=== PATIENT | female | born 1955 | race Caucasian/White ===

== ENCOUNTER 2017-05-15 15:06 | Emergency (ER) | payer BC, OTHER ==
[2017-05-15] MEDS ORDERED: Reglan 10 MG/2 ML IV ONE (15:23)
[2017-05-15] MEDS ORDERED: BENADRYL 50 MG/ML IV ONE (15:23)
[2017-05-15] MEDS ORDERED: Sodium Chloride 0.9% 1000 ML 1,000 ML IV SCH (15:30)
--- NOTE | 2017-05-15 15:32 | ERPHSYRPT ---
- History of Present Illness Time Seen by Provider: 05/15/17 15:14 Source: patient, family (daughter who is RN) Patient Subjective Stated Complaint: pt co worst [place] of life at 1130 today, states pain is behind left eye, weak.light sensitive Triage Nursing Assessment: pt alert, walked in, resp easy, skin w/d/p. no edema noted, speech clear , Physician History: CC: headache HX: 63 y/o patient with remote hx of seizures had unusual headache begin around 11PM and intensify. It is severe. She had to go to bed. She has no hx of headaches in the past. No fall or injury. Some photophobia. Neck pain. Chills without fever. No rash. Pain is behind her eye. No nasal congestion or cough or flu symptoms. She took a baby aspirin and advil and it has helped her some. Severity of Pain-Max: severe Severity of Pain-Current: severe Allergies/Adverse Reactions: No Known Drug Allergies Allergy (Verified 05/15/17 15:25) Home Medications: Aspirin 81 gm Chew [Baby Aspirin 81 mg Chew] 81 mg PO DAILY 11/07/14 [ History] Calcium Carbonate [Calcium] 600 mg PO BID 11/07/14 [History] Ibandronate Sodium [Boniva] 150 mg PO UD 11/07/14 [History] Levetiracetam [Keppra Xr] 500 mg PO BID 11/07/14 [History] Pravastatin Sodium 20 mg PO DAILY 11/19/14 [History] Hx Influenza Vaccination/Date Given: No Hx Pneumococcal Vaccination/Date Given: No Immunizations Up to Date: Yes - Review of Systems Constitutional: Chills, Malaise, No Fever Eyes: Photophobia Ears, Nose, & Throat: No Symptoms, No Nose Congestion Respiratory: No Cough Cardiac: No Other Abdominal/Gastrointestinal: Nausea, No Abdominal Pain, No Vomiting Musculoskeletal: No Fall, No Injury, No Myalgias Skin: No Rash Neurological: Headache, No Focal Weakness, No Parasthesia All Other Systems: Reviewed and Negative - Past Medical History Pertinent Past Medical History: Yes Neurological History: Seizures ENT History: No Pertinent History Cardiac History: High Cholesterol Respiratory History: No Pertinent History Endocrine Medical History: No Pertinent History Musculoskeletal History: No Pertinent History GI Medical History: No Pertinent History History: No Pertinent History Psycho-Social History: No Pertinent History Female Reproductive Disorders: No Pertinent History - Past Surgical History Past Surgical History: Yes Neuro Surgical History: No Pertinent History Cardiac: No Pertinent History Gastrointestinal: No Pertinent History Genitourinary: No Pertinent History Musculoskeletal: No Pertinent History Female Surgical History: No Pertinent History Other Surgical History: hx of fx pelvis, veins stripped in both legs - Social History Smoking Status: Never smoker Exposure to second hand smoke: No Drug Use: none Patient Lives Alone: No - Female History Hx Last Menstrual Period: post - Nursing Vital Signs Nursing Vital Signs: Initial Vital Signs Temperature 98.1 F 05/15/17 15:12 Pulse Rate 55 L 05/15/17 15:12 Blood Pressure 144/80 05/15/17 15:12 O2 Sat by Pulse Oximetry 100 05/15/17 15:12 Pain Scale Pain Intensity 2 - Physical Exam General Appearance: alert Eye Exam: PERRL/EOMI, photophobia Ears, Nose, Throat Exam: normal ENT inspection, moist mucous membranes Neck Exam: normal inspection, supple Respiratory Exam: normal breath sounds Cardiovascular Exam: regular rate/rhythm Gastrointestinal/Abdominal Exam: soft, No tenderness, No distention Extremity Exam: normal inspection, normal range of motion Mental Status Exam: alert, oriented x 3, cooperative rectifying attendant Exam: normal speech, PERRL Motor/Sensory Exam: no motor deficit, no sensory deficit, no pronator drift Skin Exam: normal color, warm, dry, No rash SpO2 Interpretation: normal SpO2: 100 Oxygen Delivery: Room Air - Course Nursing assessment & vital signs reviewed: Yes - CT Exams head CT Interpretation: Negative, Tele-radiologist Report Ordered Tests: Active Orders 24 hr Category Date Time Status IV Insertion STAT Care 05/15/17 15:23 Active Oxygen-ED Only NON-REBREATHER 100% Care 05/15/17 15:23 Active HEAD WITHOUT CONTRAST [CT] Stat Exams 05/15/17 15:24 Taken CBC W DIFF Stat Lab 05/15/17 15:30 Completed CMP Stat Lab 05/15/17 15:30 Completed Erythrocyte Sedimentation Rate Stat Lab 05/15/17 15:30 Completed VENOUS BLOOD GAS Urgent Lab 05/15/17 15:23 Completed Medication Summary Generic Name Dose Route Start Last Admin Trade Name Freq PRN Reason Stop Dose Admin Sodium Chloride 1,000 mls @ 200 mls/hr 05/15/17 15:30 05/15/17 15:57 Sodium Chloride 0.9% 1000 Ml IV 06/14/17 15:29 200 mls/hr .Q5H JONATHON Administration Discontinued Medications Generic Name Dose Route Start Last Admin Trade Name Yao PRN Reason Stop Dose Admin Diphenhydramine HCl 25 mg 05/15/17 15:23 05/15/17 15:55 Benadryl 50 Mg/Ml IV 05/15/17 15:24 25 mg STAT ONE Administration Diphenhydramine HCl Confirm 05/15/17 15:38 Benadryl 50 Mg/Ml Administered 05/15/17 15:39 Dose 50 mg .ROUTE .STK-MED ONE Metoclopramide HCl 10 mg 05/15/17 15:23 05/15/17 15:56 Reglan 10 Mg/2 Ml IV 05/15/17 15:24 10 mg STAT ONE Administration Metoclopramide HCl Confirm 05/15/17 15:38 Reglan 10 Mg/2 Ml Administered 05/15/17 15:39 Dose 10 mg .ROUTE .STK-MED ONE Lab/Rad Data: Laboratory Result Diagrams 05/15/17 15:30 05/15/17 15:30 Laboratory Results 05/15/17 05/15/17 05/15/17 Range/Units 15:30 15:30 15:23 WBC 8.1 (4.0-10.5) K/mm3 RBC 4.54 (4.1-5.4) M/mm3 Hgb 13.3 (12.0-16.0) gm/dl Hct 40.3 (35-47) % MCV 88.8 (78-100) fl MCH 29.3 (26-32) pg MCHC 33.0 (32-36) g/dl RDW 12.2 (11.5-14.0) % Plt Count 216 (150-450) K/mm3 MPV 10.3 H (6-9.5) fl Gran % 75.7 H (36.0-66.0) % Lymphocytes % 18.9 L (24.0-44.0) % Monocytes % 4.7 (0.0-12.0) % Eosinophils % 0.7 (0.00-5.0) % Basophils % 0.0 (0.0-0.4) % Basophils # 0 (0-0.4) ESR 10 (0-20) mm/hr VBG pH 7.34 (7.32-7.42) VBG pCO2 at Pat Temp 58 H (42-55) mm/Hg VBG pO2 at Pat Temp 24 L (25-40) mm/Hg VBG HCO3 31.3 H* (22-28) meq/L VBG O2 Sat ([place]) 44.7 L (95-100) VBG Base Excess 3.9 H (-2.0-2.0) VBG Hemoglobin 14.2 VBG Carboxyhemoglobin 1.4 (0.0-6.9) % T HGB POC Potassium 3.8 (3.5-5.1) Sodium 142 (136-145) mEq/L Potassium 3.9 (3.5-5.1) mEq/L Chloride 103 (98-107) mEq/L Carbon Dioxide 30.6 (21-32) mEq/L Anion Gap 11.9 (5-15) MEQ/L BUN 10 (9-20) mg/dL Creatinine 0.71 (0.55-1.30) mg/dl Estimated GFR > 60 ML/MIN Glucose 94 (70-110) MG/DL Calcium 9.0 (8.5-10.1) mg/dL Total Bilirubin 0.20 (0.2-1.0) mg/dL AST 24 (15-37) U/L ALT 26 (12-78) U/L Alkaline Phosphatase 68 (46-116) U/L Serum Total Protein 7.6 (6.4-8.2) gm/dL Albumin 4.1 (3.4-5.0) g/dL - Progress Progress Note: 05/15/17 16:46 Labs reassuring with normal ESR and WBC. Afebrile. She feels much better after IVF, benadryl, and reglan. She is ready to go home. Will release with headache instructions. Counseled pt/family regarding: lab results, diagnosis, need for follow-up, rad results - Departure Time of Disposition: 16:47 Departure Disposition: Home Clinical Impression: Headache Qualifiers: Headache type: unspecified Headache chronicity pattern: acute headache Intractability: not intractable Qualified Code(s): R51 - Headache Condition: Stable Critical Care Time: No Referrals: EDWIN KILPATRICK [CONSULTING PHYSICIAN] - Instructions: Headache, Adult (DC) Additional Instructions: HEADACHE 1. After discharge from the emergency department, you should rest at home in a cool, dark, quiet place for 12-24 hours. 2. If any of the following signs or symptoms are noticed, you should be re- evaluated right away: A. Visual changes B. Stiff Neck C. Change in quality or location of pain D. Fever E. Recurrent vomiting 3. If pain medications were prescribed or given, they may cause drowsiness. No driving tonite and stay with family. Return for problems or concerns.
[2017-05-15 15:37] LABS: Basophil (Absolute #) 0 (0-0.4); Eosinophil % 0.7 % (0.00-5.0); Eosinophil (Absolute #) 0.06 (0-0.5); Granulocyte Absolute (ANC) 6.15 (1.4-6.9); Granulocytes % 75.7 % (36.0-66.0); Hematocrit 40.3 % (35-47); Hemoglobin 13.3 gm/dl (12.0-16.0); Lymphocyte (Absolute #) 1.54 (1.0-4.6); Lymphocytes % 18.9 % (24.0-44.0); Mean Cell Volume 88.8 fl (78-100); Mean Corpuscular Hemoglobin 29.3 pg (26-32); Mean Platelet Volume 10.3 fl (6-9.5); Monocyte (Absolute #) 0.38 (0.0-1.3); Monocytes % 4.7 % (0.0-12.0); Platelet Count 216 K/mm3 (150-450); Red Blood Count 4.54 M/mm3 (4.1-5.4); Red Cell Distribution Width 12.2 % (11.5-14.0); White Blood Count 8.1 K/mm3 (4.0-10.5)
[2017-05-15] MEDS ORDERED: Sodium Chloride 0.9% 1000 ML 1,000 ML ONE (15:38)
[2017-05-15] MEDS ORDERED: BENADRYL 50 MG/ML ONE (15:38)
[2017-05-15] MEDS ORDERED: Reglan 10 MG/2 ML ONE (15:38)
[2017-05-15 15:44] LABS: VBG BASE EXCESS 3.9 (-2.0-2.0); VBG CARBOXYHEMOGLOBIN 1.4 % T HGB (0.0-6.9); VBG HCO3- 31.3 meq/L (22-28); VBG HEMOGLOBIN 14.2; VBG O2 SATURATION 44.7 (95-100); VBG POTASSIUM 3.8 (3.5-5.1); VBG pH 7.34 (7.32-7.42)
[2017-05-15 15:58] LABS: ALBUMIN 4.1 g/dL (3.4-5.0); ALKALINE PHOSPHATASE 68 U/L (46-116); ANION GAP 11.9 MEQ/L (5-15); BLOOD UREA NITROGEN 10 mg/dL (9-20); CHLORIDE 103 mEq/L (98-107); Carbon Dioxide 30.6 mEq/L (21-32); Creatinine 1 0.71 mg/dl (0.55-1.30); EST GLOMERULAR FILTRATION RATE > 60 ML/MIN; Glucose 94 MG/DL (70-110); Potassium 3.9 mEq/L (3.5-5.1); SGOT/AST 24 U/L (15-37); SGPT/ALT 26 U/L (12-78); SODIUM 142 mEq/L (136-145); Total Protein 7.6 gm/dL (6.4-8.2)
[2017-05-15 16:08] LABS: Erythrocyte Sedimentation Rate 10 mm/hr (0-20)
[2017-05-15 16:48] VITALS: O2SAT 100
[2017-05-15 16:53] VITALS: BP 127/62; PULSE 58
--- NOTE | 2017-05-15 20:45 | XRAY ---
Indication: Headache. Multiple contiguous axial images obtained through the head without contrast. Comparison: February 20, 2010. Again normal appearing brain parenchyma, ventricles, and bony calvarium. Visualized paranasal sinuses and mastoid air cells are clear. Impression: Normal CT head without contrast exam. Comment: Preliminary interpretation was made by [facility]. No discrepancy. CTDI 65.91
== END 2017-05-15 16:58 | disposition home or self-care (01) ==
LOC: ED 15:06
DX: R51 Headache (principal)
CPT/HCPCS: 36000; 36415; 70450; 80053; 82805; 85025; 85652; 96360; 96374; 96375; 99284; J1200